=== PATIENT | female | born 2000 | race Caucasian/White ===

== ENCOUNTER → 2023-12-08 09:53 | Outpatient (REF) | payer BC, SELFPAY ==
[2023-12-08 12:25] LABS: Urine Albumin Negative (Neg - Trace); Urine Bilirubin Negative (Negative); Urine Character Clear (Clear); Urine Color Yellow; Urine Glucose Negative (Negative); Urine Ketone Negative (Negative); Urine Leukocyte 2+ (Negative); Urine Nitrite Negative (Negative); Urine Occult Blood Negative (Negative); Urine Specific Gravity 1.005 (<1.030); Urine Urobilinogen Negative (Neg - 1+)
[2023-12-08 12:33] LABS: % Basophils 1.4 % (0-2); % Eosinophils 1.4 % (0-6); % Immature Granulocytes 0.2 % (0-0.5); % Lymphocytes 40.2 % (20.5-51.1); % Monocytes 6.9 % (1.7-9.3); % Neutrophils 49.9 % (42.2-75.2); Absolute Basophils 0.1 10^3/uL (0-0.2); Absolute Eosinophils 0.1 10^3/uL (0-0.7); Absolute Lymphocytes 2.3 10^3/uL (1.2-3.4); Absolute Monocytes 0.4 10^3/uL (0.1-0.6); Absolute Neutrophils 2.9 10^3/uL (1.4-6.5); Hematocrit 38.5 % (37.0-47.0); Hemoglobin 13.5 g/dL (12.0-16.0); Mean Corp Hgb Conc. 35.1 g/dL (33.0-37.0); Mean Corpuscular Hgb 31.6 pg (27.0-31.0); Mean Corpuscular Volume 90.2 fL (81.0-99.0); Mean Platelet Volume 10.7 fL (7.4-10.4); Nucleated Red Blood Cells % 0 %; Platelet Count 332 10^3/uL (130-400); Red Blood Cell Count 4.27 10^6/uL (4.20-5.40); Red Cell Dist. Width 12.3 % (11.5-14.5); Urine Bacteria Few (Negative); Urine Red Blood Cell 0-2 /HPF (0-2); Urine Squamous Cell >30 /LPF (Few); Urine Urothelial Cell 0-2 /LPF (FEW); White Blood Cell Count 5.8 10^3/uL (4.8-10.8)
[2023-12-08 12:36] LABS: ALT (SGPT) 20 U/L (0-35); AST (SGOT) 26 U/L (14-36); Albumin 4.5 g/dl (3.5-5.0); Alkaline Phosphatase 62 U/L (38-126); Blood Urea Nitrogen 9 mg/dl (7-17); Calcium 9.8 mg/dl (8.4-10.2); Carbon Dioxide 23 mmol/L (22-30); Chloride 106 mmol/L (98-107); Glucose 104 mg/dl (70-99); HDL Cholesterol 78 mg/dl; LDL Cholesterol, Calculated 121 mg/dl; Sodium 137 mmol/L (135-145); Total Bilirubin 0.6 mg/dl (0.2-1.3); Total Cholesterol 216 mg/dl (50-199); Total Protein 7.6 g/dl (6.3-8.2); Triglyceride 89 mg/dl (10-149); Very Low Density Lipoprotein 17 mg/dl (0-30); eGFR > 60.00
[2023-12-08 13:06] LABS: Cortisol, Random 25.5 ug/dl; TSH Reflex To Free T4 1.55 uIU/ml (0.47-4.68)
[2023-12-08 15:24] LABS: Glycohemoglobin (HgbA1c) 5.3 % (4.0-5.6)
[2023-12-10 09:34] LABS: DHEA Sulfate 200 ug/dL (148-407)
== END ==
LOC: HWLAB 09:53
PROVIDERS: ATTENDING PHYSICIAN Family Medicine
DX: Z00.00 Encounter for general adult medical examination without abnormal findings (principal); R63.5 Abnormal weight gain
CPT/HCPCS: 36415; 80053; 80061; 81003; 81015; 82533; 82627; 83036; 84270; 84402; 84403; 84443; 85025

== ENCOUNTER → 2023-12-23 07:49 | Outpatient (REF) | payer BC, SELFPAY ==
[2023-12-25 12:12] LABS: Sex Hormone Binding Globulin 104 nmol/L (25-122)
== END ==
LOC: REG 07:49
PROVIDERS: ATTENDING PHYSICIAN Family Medicine
DX: R63.5 Abnormal weight gain (principal)
CPT/HCPCS: 36415; 82533; 84270

== ENCOUNTER → 2024-01-24 06:39 | Day surgery (SDC) | payer BC, SELFPAY | LOC: GI 06:39 | PROVIDERS: ATTENDING PHYSICIAN Internal Medicine Gastroenterology; FAMILY PHYSICIAN Family Medicine | DX: Z15.09 Genetic susceptibility to other malignant neoplasm (principal); K31.7 Polyp of stomach and duodenum; K31.89 Other diseases of stomach and duodenum; K21.9 Gastro-esophageal reflux disease without esophagitis; C18.9 Malignant neoplasm of colon, unspecified | CPT/HCPCS: 43239; 88305; 88342 ==

== ENCOUNTER 2024-05-13 06:16 | Day surgery (SDC) | payer OTHER, BC, SELFPAY | END 2024-05-13 16:34 | disposition home or self-care (01) | LOC: GI 06:16 | PROVIDERS: ATTENDING PHYSICIAN Internal Medicine Gastroenterology | DX: Z15.09 Genetic susceptibility to other malignant neoplasm (principal); Z80.0 Family history of malignant neoplasm of digestive organs; K64.8 Other hemorrhoids | CPT/HCPCS: 45378 ==